=== PATIENT | female | born 1990 | race Caucasian/White ===

== ENCOUNTER → 2021-06-30 | Outpatient (CLI) | payer SELFPAY ==
[~2021-06-30] MED LIST: BIRTH CONTROL; CITALOPRAM HBR10 MG; PREDNISONE20 M1 PO
== END ==
LOC: RAD 14:50
DX: R22.43 Localized swelling, mass and lump, lower limb, bilateral (principal)

== ENCOUNTER → 2023-10-12 | Outpatient (CLI) | payer OTHER | LOC: VAS 13:55 → RAD 13:55 | DX: M79.662 Pain in left lower leg (principal) ==